=== PATIENT | female | born 1980 | race Caucasian/White ===

== ENCOUNTER 2019-05-16 09:56 | Day surgery (SDC) | payer BC ==
[2019-05-08 17:21] VITALS: BMI 28.9
[2019-05-16] MEDS ORDERED: Pregnancy Control Solution IV ONE (11:01)
[2019-05-16] MEDS ORDERED: BUPIVACAINE HCL/PF 2.5 MG/ML - 30 ML VIAL IJ ONE (11:24)
[2019-05-16] MEDS ORDERED: ROCURONIUM BROMIDE 50 MG/5 ML SYRINGE ONE (11:41)
[2019-05-16] MEDS ORDERED: DEXAMETHASONE SOD PHOSPHATE 4 MG/1 ML VIAL ONE (11:41)
[2019-05-16] MEDS ORDERED: MIDAZOLAM HCL 2 MG/2 ML SINGLE DOSE VIAL ONE (11:41)
[2019-05-16] MEDS ORDERED: ONDANSETRON 4 MG/2 ML VIAL ONE (11:41)
[2019-05-16] MEDS ORDERED: KETOROLAC TROMETHAMINE 30 MG/1 ML VIAL ONE (11:41)
[2019-05-16] MEDS ORDERED: PROPOFOL 20 ML ONE ×2 (11:41→13:07)
[2019-05-16] MEDS ORDERED: SUCCINYLCHOLINE CHLORIDE 200 MG/10 ML SYRINGE ONE (11:42)
[2019-05-16] MEDS ORDERED: ONDANSETRON 4 MG/2 ML VIAL IVPUSH PRN (11:52)
[2019-05-16] MEDS ORDERED: LACTATED RINGERS SOLUTION 1,000 ML IV SCH (12:00)
[2019-05-16] MEDS ORDERED: NEOSTIGMINE METHYLSULFATE 0.5 MG/ML - 10 ML MDV ONE (13:21)
[2019-05-16] MEDS ORDERED: GLYCOPYRROLATE 0.2 MG/1 ML VIAL ONE (13:21)
[2019-05-16] MEDS ORDERED: BUPIVACAINE HCL/PF 0.25% (2.5MG/ML) 10 ML VIAL IJ ONE (13:23)
[2019-05-16] MEDS ORDERED: ACETAMINOPHEN 325 MG TABLET (FP) PO PRN (13:42)
[2019-05-16] MEDS ORDERED: ENOXAPARIN NA (PORCINE) 40 MG/0.4 ML DISP.SYRIN SQ ONE ×2 (13:42→14:35)
[2019-05-16] MEDS ORDERED: oxyCODONE HCL 5 MG TABLET PO PRN (13:42)
[2019-05-16] MEDS ORDERED: SODIUM CHLORIDE 1,000 ML IV SCH (13:45)
--- NOTE | 2019-05-16 13:49 | OP ---
Operative Note - Note: Operative Date: 05/16/19 Pre-Operative Diagnosis: Epigastric Abdominal Pain. Vomiting. Mechanical complication of implantable device secondary to gastric band Operation: Removal of Gastric Band plus subcutaneous port component. Laparoscopic lysis of adhesions. Excision of fibrous capsule around stomach. Diagnostic Laparoscopy Findings: Gastric Band noted with thick fibrous capsule around Band on lesser and greater curve areas Areas of adhesions between omentum and band tubing Post-Operative Diagnosis: Same as Pre-op (Abdominal adhesions; fibrous capsule around band) Surgeon: Tanner Calvert Partition Assembler: Judi Ron Anesthesia: General Specimens Removed: Gastric Band plus sub-Q port Estimated Blood Loss (mls): 15 Operative Report Dictated: Yes
[2019-05-16] MEDS ORDERED: ENOXAPARIN NA (PORCINE) 40 MG/0.4 ML DISP.SYRIN SQ SCH (14:00)
[2019-05-16] MEDS ORDERED: FAMOTIDINE 20 MG/50 ML IVPB 20 MG/50 ML MG IVPB ONE (14:36)
[2019-05-16] MEDS ORDERED: FAMOTIDINE 20 MG PREMIXED IVPB IVPB ONE (14:40)
--- NOTE | 2019-05-16 14:56 | OP ---
DATE OF OPERATION: 05/16/2019 PREOPERATIVE DIAGNOSES: 1. Epigastric abdominal pain. 2. Vomiting. 3. Mechanical complication of implantable device secondary to gastric band. POSTOPERATIVE DIAGNOSES: 1. Epigastric abdominal pain. 2. Vomiting. 3. Mechanical complication of implantable device secondary to gastric band. 4. Abdominal adhesions. 5. Fibrous capsule around the band. PROCEDURES PERFORMED: 1. Removal of gastric band plus subcutaneous port component. 2. Laparoscopic lysis of adhesions. 3. Excision of fibrous capsule around the stomach. 4. Diagnostic laparoscopy. OPERATING SURGEON: Tanner Calvert MD. WATER CONTROL STATION ENGINEER: LUBA Adams ANESTHESIA: General. EXPECTED BLOOD LOSS: 15 mL. DESCRIPTION OF PROCEDURE: Patient was brought into the operating room, placed on the OR table in a supine position. All precautions were taken initially including padding for the back and the feet, and Venodyne boots were placed on both lower extremities. At that point, the abdomen was prepped and draped in the usual manner. A Veress needle was placed in the left upper quadrant, and a pneumoperitoneum was established. Under direct vision with a No. 5 trocar in an Optiview trocar so that a camera was placed and under direct vision, a No. 5 trocar was placed in that left upper quadrant location. Through that trocar, laparoscopic camera was placed. Under direct vision, two No. 5 bladeless trocars were placed in the right upper quadrant, and a No. 5 bladeless trocar was placed more laterally in the left upper quadrant by the left costal margin. A Leif liver retractor was then placed in the epigastrium to retract the left lobe of the liver. The patient was then placed in 20-degree reverse Trendelenburg position by anesthesia. The band tubing was noted going to the band, and there was significant scar tissue noted around the tubing and the band itself. The scar tissue was mostly omentum, and it was dissected off of the band with the electrocautery. This was done carefully not to cause any injury to the underlying stomach and was done to clear up the adhesions off the band. However, minimal dissection was possible because of patient's history of DVT and the need for anticoagulation immediately postoperative. With the mailroom assistant surgeon grabbing the band tubing and pulling it or retracting it to the patient's left side, the operating surgeon dissected the fibrous capsule off the band, which was on the lesser curvature side until the entire lesser curvature of the band was in full view and it was mobile. At this juncture, the operating surgeon pulled the band tubing to the patient's right side as the mailroom assistant surgeon retracted the stomach on the greater curvature inferiorly. Here, the fibrous capsule was very thickened around the band, but it was carefully dissected off the band until the entire band was in full view anteriorly. The band was then opened, and the tubing was cut at the take off to the subcutaneous port, and the band was then removed from around the stomach in 1 piece and sent off the field as a specimen to pathology. Attention was directed to the fibrous capsule around the stomach. This fibrous capsule was very flimsy. Because of the risk of causing bleeding, which would have held up giving anticoagulation, it was decided not to engage the fibrous capsule at this point. Under direct vision, all trocars were removed, and pneumoperitoneum was released. The port had been placed right below the xiphoid on previous surgeries. Incision was made over that area for about 2 to 2-1/2 cm. The incision was carried down through the skin and subcutaneous tissue with electrocautery. The port was then noted, and there was a fibrous capsule that was dissected off the port, and the port and the rest of the tubing were removed and sent off the field as a specimen with the rest of the band. At this juncture, all trocar sites received 0.25% Marcaine. They were closed with 4-0 Biosyn in subcuticular fashion except where the port was, which was 1st closed with 3-0 Vicryl in the subcutaneous tissue then closed with 4-0 Biosyn in subcuticular fashion. Dressings were applied. The patient was awoken from anesthesia and transferred out of the operating room to the recovery room in stable condition. Niall [id number]
--- NOTE | 2019-05-16 15:11 | SURG ---
Surgery Gear Hobber Set Up Operator Note Gear Hobber Set Up Operator: Judi Ron PA-C Date of Service: 05/16/19 Diagnosis: Epigastric Abdominal Pain. Vomiting. Mechanical complication of implantable device secondary to gastric band Procedure: Removal of Gastric Band plus subcutaneous port component. Laparoscopic lysis of adhesions. Excision of fibrous capsule around stomach. Diagnostic Laparoscopy I was present for the entirety of the operative procedure. For further detail, please refer to operative report. Visit type - Case Type Case Type: Scheduled - Emergency Emergency Visit: No - New patient This patient is new to me today: Yes Date on this admission: 05/16/19
[2019-05-16 15:58] VITALS: TEMP 98
[2019-05-16 16:28] VITALS: BP 133/65; PULSE 52
[2019-05-16] MEDS ORDERED: FAMOTIDINE 20 MG/50 ML IVPB 20 MG/50 ML MG IVPB SCH (22:00)
== END 2019-05-16 16:49 | disposition home or self-care (01) ==
LOC: FASU 09:56
PROVIDERS: ATTEND Surgery
PROC: 0DN64ZZ Release Stomach, Percutaneous Endoscopic Approach (ICD-10-PCS; 2019-05-16)
PROC: 0DP64CZ Removal of Extraluminal Device from Stomach, Percutaneous Endoscopic Approach (ICD-10-PCS; principal; 2019-05-16 12:47)
DX: T85.518A Breakdown (mechanical) of other gastrointestinal prosthetic devices, implants and grafts, initial encounter (principal); K95.09 Other complications of gastric band procedure; K31.89 Other diseases of stomach and duodenum; R10.13 Epigastric pain; R11.10 Vomiting, unspecified; K66.0 Peritoneal adhesions (postprocedural) (postinfection); Y73.3 Surgical instruments, materials and gastroenterology and urology devices (including sutures) associated with adverse incidents; Y93.89 Activity, other specified; Y92.89 Other specified places as the place of occurrence of the external cause
CPT/HCPCS: 84703; 94760